=== PATIENT | male | born 1990 ===

== ENCOUNTER 2021-09-07 21:26 | Emergency (ER) | payer SELFPAY ==
[2021-09-07] MEDS ORDERED: CEPHALEXIN500 MG PO (22:44)
== END 2021-09-07 23:28 | disposition home or self-care (01) ==
LOC: FER 21:26
DX: S61.210A Laceration without foreign body of right index finger without damage to nail, initial encounter (principal); Z23 Encounter for immunization; W26.0XXA Contact with knife, initial encounter; Y93.89 Activity, other specified; Y92.89 Other specified places as the place of occurrence of the external cause; Y99.0 Civilian activity done for income or pay
CPT/HCPCS: 90471; 90715